=== PATIENT | female | born 1960 | race Caucasian/White ===

== ENCOUNTER 2019-06-27 11:40 | Emergency (ER) | payer BC ==
[2019-06-27 11:47] VITALS: TEMP 98.4
[2019-06-27 12:50] LABS: Basophils % (A) 1 %; Eosinophils # (A) 0.1 k/uL (0-0.7); Eosinophils % (A) 2 %; HCT 37.9 % (34.0-46.0); HGB 12.6 gm/dL (11.4-16.0); Lymphocytes # (A) 2.1 k/uL (1.0-4.8); Lymphocytes % (A) 37 %; MCHC 33.2 g/dL (31.0-37.0); MCV 87.2 fL (80.0-100.0); Mean Platelet Volume 6.8; Monocytes # (A) 0.3 k/uL (0-1.0); Monocytes % (A) 6 %; Neutrophils # (A) 2.8 k/uL (1.3-7.7); Neutrophils % (A) 51 %; Platelet Count 361 k/uL (150-450); RBC 4.35 m/uL (3.80-5.40); RDW 12.8 % (11.5-15.5); WBC 5.6 k/uL (3.8-10.6)
[2019-06-27 12:54] LABS: INR 0.9 (<1.2); Partial Thromboplastin Time 23.3 sec (22.0-30.0); Prothrombin Time 9.6 sec (9.0-12.0)
[2019-06-27 12:57] LABS: Potassium 4.7 mmol/L (3.5-5.1); Total Bilirubin 0.3 mg/dL (0.2-1.3); Total Protein 6.6 g/dL (6.3-8.2)
--- NOTE | 2019-06-27 13:23 | US ---
EXAMINATION TYPE: US venous doppler duplex LE RT DATE OF EXAM: 06/27/2019 1:17 PM COMPARISON: NONE CLINICAL HISTORY: right leg pain. right leg numbness when walking sometimes. difficult exam due to pa tient body habitus SIDE PERFORMED: Right TECHNIQUE: The lower extremity deep venous system is examined utilizing real time linear array sonog michelle with graded compression, doppler sonography and color-flow sonography. VESSELS IMAGED: External Iliac Vein (EIV) Common Femoral Vein Deep Femoral Vein Greater Saphenous Vein * Femoral Vein Popliteal Vein Small Saphenous Vein * Proximal Calf Veins (* superficial vessels) Right Leg: Negative for DVT No popliteal fossa lesion was seen. IMPRESSION: THIS EXAMINATION IS NEGATIVE FOR DVT WITHIN THE RIGHT LEG
--- NOTE | 2019-06-27 13:23 | XR ---
EXAMINATION TYPE: XR chest 2V DATE OF EXAM: 06/27/2019 HISTORY: altered mental status. REFERENCE: Previous study dated 07/12/2013. FINDINGS: The lungs are clear. Pleural spaces are clear. The heart is not enlarged. IMPRESSION: NO ACTIVE INTRATHORACIC DISEASE.
[2019-06-27 13:24] VITALS: RESP 17
--- NOTE | 2019-06-27 13:38 | ED ---
General Adult HPI - General Chief complaint: Neuro Symptoms/Deficit Stated complaint: lt arm numbness Time Seen by Provider: 06/27/19 11:45 Source: patient Mode of arrival: ambulatory Limitations: no limitations - History of Present Illness Initial comments: The patient is a 59-year-old female with past history of hypertension, hyperlipidemia and thyroid disorder who presents to the emergency department with reported left arm numbness. She states that her symptoms started earlier today. She states that she has a complete tingling sensation which extends from the left side of the neck down to her fingertips. She denies any associated weakness. No numbness or weakness in her left lower extremity. Denies any speech difficulties or confusion. No history of stroke in the past. Denies any headaches or visual changes. Denies any provocative factors. No chest pain or shortness of breath. No recent chiropractic manipulations the neck. Denies any midline neck pain. No recent trauma. No fevers or chills. Denies vertiginous symptoms. There are no other alleviating, precipitating or modifying factors - Related Data Home Medications Medication Instructions Recorded Confirmed Ascorbic Acid/Multivit-Min 1,000 mg PO DAILY 06/27/19 06/27/19 [Emergen-C 1,000 mg Packet] Aspirin EC [Ecotrin Low Dose] 81 mg PO HS 06/27/19 06/27/19 Carvedilol [Coreg] 3.125 mg PO BID 06/27/19 06/27/19 Levothyroxine Sodium [Synthroid] 112 mcg PO DAILY 06/27/19 06/27/19 Simvastatin [Zocor] 20 mg PO HS 06/27/19 06/27/19 Tolterodine ER [Detrol LA] 4 mg PO DAILY 06/27/19 06/27/19 Allergies Allergy/AdvReac Type Severity Reaction Status Date / Time No Known Allergies Allergy Verified 06/27/19 13:32 Review of Systems ROS Statement: Those systems with pertinent positive or pertinent negative responses have been documented in the HPI. ROS Other: All systems not noted in ROS Statement are negative. Past Medical History Past Medical History: Hyperlipidemia, Hypertension, Thyroid Disorder History of Any Multi-Drug Resistant Organisms: None Reported Past Surgical History: Section Past Psychological History: No Psychological Hx Reported Smoking Status: Never smoker Past Alcohol Use History: None Reported Past Drug Use History: None Reported General Exam Limitations: no limitations General appearance: alert, in no apparent distress Head exam: Present: atraumatic, normocephalic, normal inspection Eye exam: Present: normal appearance, PERRL, EOMI. Absent: scleral icterus, conjunctival injection, periorbital swelling ENT exam: Present: normal exam, mucous membranes moist Neck exam: Present: normal inspection. Absent: tenderness, meningismus, lymphadenopathy Respiratory exam: Present: normal lung sounds bilaterally. Absent: respiratory distress, wheezes, rales, rhonchi, stridor Cardiovascular Exam: Present: regular rate, normal rhythm, normal heart sounds. Absent: systolic murmur, diastolic murmur, rubs, gallop, clicks GI/Abdominal exam: Present: soft, normal bowel sounds. Absent: distended, tenderness, guarding, rebound, rigid Extremities exam: Present: normal inspection, full ROM, normal capillary refill, other (intact 2 point discrimination and soft touch in the bilateral upper extremities in the medial, radial and ulnar distributions. 2+ radial and ulnar pulses. 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 ). Absent: tenderness, pedal edema, joint swelling, calf tenderness Back exam: Present: normal inspection Neurological exam: Present: alert, oriented X3, CN II-XII intact Psychiatric exam: Present: normal affect, normal mood Skin exam: Present: warm, dry, intact, normal color. Absent: rash Course Vital Signs 06/27/19 06/27/19 06/27/19 11:42 13:23 14:12 Temperature 98.4 F Pulse Rate 74 67 71 Respiratory 16 17 17 Rate Blood Pressure 174/90 135/71 152/75 O2 Sat by Pulse 97 98 98 Oximetry EKG Findings - EKG Comments: EKG Findings:: EKG demonstrates normal sinus rhythm with ventricular rate of 71. ND interval 140. QRS 80. QTC of 441. No acute ST segment elevations or d epressions concerning for ischemic changes Medical Decision Making - Medical Decision Making Upon arrival the patient was placed into room 11. A thorough history and physical exam was performed. The patient does present with subjective paresthes ias. She does have intact sensation over the medial lateral dorsal hand in the distribution of the median, radial and ulnar nerve distributions. She has intact 5 out of 5 muscle strength in the bilateral upper extremities. NIH stroke scale is 0. I did discuss diagnosis, differential treatment options. I did recommend evaluation for acute CVA as well as cardiac event. The patient did agree to this. 12-lead EKG was performed. Laboratory studies were conducted. CBC and CMP are unremarkable. Troponin is less than 0.012. CT angiography of the patient's brain demonstrates no significant carotid stenosis normal CT of the [place] mild degenerative changes within the spine at C5-C6 and C6 to C7. Plain CT demonstrates no acute intracranial normality chest x-ray demonstrates no active intrathoracic disease. Venous Doppler demonstrates no signs of DVT. I discussed results with the patient. I did offer her a muscle relaxer as I do believe that she has a trapezius strain. The patient refused stating that she would just rather take Motrin and Tylenol at home. At this time the patient will be discharged home. She needs help primary care doctor in 2-4 days. She may require an MRI of her brain cervical spine of her symptoms persist. Return to the emergency room for any new or worsening symptoms per the patient was discharged home in stable condition - Lab Data Result diagrams: 06/27/19 12:23 06/27/19 12:23 Lab Results 06/27/19 06/27/19 06/27/19 Range/Units 12:23 12:23 12:23 WBC 5.6 (3.8-10.6) k/uL RBC 4.35 (3.80-5.40) m/uL Hgb 12.6 (11.4-16.0) gm/dL Hct 37.9 (34.0-46.0) % MCV 87.2 (80.0-100.0) fL MCH 29.0 (25.0-35.0) pg MCHC 33.2 (31.0-37.0) g/dL RDW 12.8 (11.5-15.5) % Plt Count 361 (150-450) k/uL Neutrophils % 51 % Lymphocytes % 37 % Monocytes % 6 % Eosinophils % 2 % Basophils % 1 % Neutrophils # 2.8 (1.3-7.7) k/uL Lymphocytes # 2.1 (1.0-4.8) k/uL Monocytes # 0.3 (0-1.0) k/uL Eosinophils # 0.1 (0-0.7) k/uL Basophils # 0.0 (0-0.2) k/uL PT 9.6 (9.0-12.0) sec INR 0.9 (<1.2) APTT 23.3 (22.0-30.0) sec Sodium 140 (137-145) mmol/L Potassium 4.7 (3.5-5.1) mmol/L Chloride 105 (98-107) mmol/L Carbon Dioxide 30 (22-30) mmol/L Anion Gap 5 mmol/L BUN 12 (7-17) mg/dL Creatinine 0.82 (0.52-1.04) mg/dL Est GFR (CKD-EPI)AfAm 89 (>60 ml/min/1.73 sqM) Est GFR (CKD-EPI)NonAf 78 (>60 ml/min/1.73 sqM) Glucose 104 H (74-99) mg/dL Calcium 9.0 (8.4-10.2) mg/dL Total Bilirubin 0.3 (0.2-1.3) mg/dL AST 29 (14-36) U/L ALT 18 (4-34) U/L Alkaline Phosphatase 64 (38-126) U/L Troponin I (0.000-0.034) ng/mL Total Protein 6.6 (6.3-8.2) g/dL Albumin 4.0 (3.5-5.0) g/dL 06/27/19 Range/Units 12:23 WBC (3.8-10.6) k/uL RBC (3.80-5.40) m/uL Hgb (11.4-16.0) gm/dL Hct (34.0-46.0) % MCV (80.0-100.0) fL MCH (25.0-35.0) pg MCHC (31.0-37.0) g/dL RDW (11.5-15.5) % Plt Count (150-450) k/uL Neutrophils % % Lymphocytes % % Monocytes % % Eosinophils % % Basophils % % Neutrophils # (1.3-7.7) k/uL Lymphocytes # (1.0-4.8) k/uL Monocytes # (0-1.0) k/uL Eosinophils # (0-0.7) k/uL Basophils # (0-0.2) k/uL PT (9.0-12.0) sec INR (<1.2) APTT (22.0-30.0) sec Sodium (137-145) mmol/L Potassium (3.5-5.1) mmol/L Chloride (98-107) mmol/L Carbon Dioxide (22-30) mmol/L Anion Gap mmol/L BUN (7-17) mg/dL Creatinine (0.52-1.04) mg/dL Est GFR (CKD-EPI)AfAm (>60 ml/min/1.73 sqM) Est GFR (CKD-EPI)NonAf (>60 ml/min/1.73 sqM) Glucose (74-99) mg/dL Calcium (8.4-10.2) mg/dL Total Bilirubin (0.2-1.3) mg/dL AST (14-36) U/L ALT (4-34) U/L Alkaline Phosphatase (38-126) U/L Troponin I <0.012 (0.000-0.034) ng/mL Total Protein (6.3-8.2) g/dL Albumin (3.5-5.0) g/dL Disposition Clinical Impression: Left arm numbness Disposition: HOME SELF-CARE Condition: Stable Instructions (If sedation given, give patient instructions): Paresthesia (ED) Additional Instructions: Please follow-up with the primary care doctor in 2-4 days. If you have persistent symptoms you may need an MRI of your head and neck. Return to the emergency room for any new or worsening symptoms Is patient prescribed a controlled substance at d/c from ED?: No Referrals: Irina Witt DO [Primary Care Provider] - 1-2 days Time of Disposition: 14:32
--- NOTE | 2019-06-27 13:40 | CT ---
EXAMINATION TYPE: CT brain wo con DATE OF EXAM: 06/27/2019 COMPARISON: NONE HISTORY: Left arm numbness CT DLP: 911.2 mGycm Automated exposure control for dose reduction was used. FINDINGS: There is mild, diffuse periventricular white matter lucency which may be on the basis small vessel di sease. Central structures are midline. There is no evidence of hydrocephalus. No acute focal lesion, mass ef fect or midline shift is seen. I do not see evidence of intracranial blood. Visualized portions of the paranasal sinuses and mastoids are clear. The bony calvarium is intact. IMPRESSION: 1. NO ACUTE INTRACRANIAL ABNORMALITY. 2. MILD, CHRONIC WHITE MATTER ISCHEMIC CHANGE.
--- NOTE | 2019-06-27 13:48 | CT ---
EXAMINATION TYPE: CT angio head neck DATE OF EXAM: 06/27/2019 HISTORY: Left arm numbness COMPARISON: None. CT DLP: 636.7 mGycm. Automated Exposure Control for Dose Reduction was Utilized. TECHNIQUE: CTA scan of the neck is performed without and with IV Contrast, patient injected with 65 ml mL of Isovue 370, axial images are obtained, coronal and sagittal reformatted images are reviewed. Three-D reconstructed images are created on an independent workstation and reviewed. FINDINGS: Visualized portions of the lungs are clear. Vertebral body height and alignment are normal. There is mild disc space loss and hypertrophic spondy losis at C5-6 and C6-7. There is mild uncovertebral joint disease at the There is a normal origin of the great vessels the left vertebral artery is dominant. There is no significant stenosis in either carotid system. CT of the [place] has a normal appearance. There is some mild atheromatous calcification inv olving the intracavernous portion of the ICA. There is normal arborization of the middle cerebral art devi. The anterior and posterior cerebral circulations appear normal. No sizable aneurysm is seen. IMPRESSION: 1. NO SIGNIFICANT CAROTID STENOSIS. 2. NORMAL CTA OF THE [place]. 3. MILD DEGENERATIVE CHANGE WITHIN THE SPINE.
[2019-06-27 14:12] VITALS: BP 152/75; PULSE 71
== END 2019-06-27 14:39 | disposition home or self-care (01) ==
LOC: EC 11:40
DX: M47.812 Spondylosis without myelopathy or radiculopathy, cervical region (principal); I10 Essential (primary) hypertension; E78.5 Hyperlipidemia, unspecified; E07.9 Disorder of thyroid, unspecified; Z79.82 Long term (current) use of aspirin; Z79.890 Hormone replacement therapy; Z79.899 Other long term (current) drug therapy
CPT/HCPCS: 99284; 36415; 93005; 80053; 84484; 85025; 85610; 85730; 71046; 93971; 70496; 70450; 70498; Q9967